=== PATIENT | female | born 1990 | race Caucasian/White ===

== ENCOUNTER 2016-05-04 06:49 | Day surgery (SDC) | payer OTHER ==
[~2016-05-04] VITALS: Ht 157.5 cm; Wt 90.0 kg
[2016-05-04 06:50] VITALS: BP 133/85; PULSE 82; RESP 16; TEMP 98.3; O2SAT 98
[2016-05-04] MEDS ORDERED: BIRTH CONTROL (07:07)
[2016-05-04] MEDS ORDERED: CLIN1CAP5 PO (07:09)
[2016-05-04] MEDS ORDERED: METH4PAK PO (07:09)
[2016-05-04] MEDS ORDERED: TRAM50TA PO (07:09)
--- NOTE | 2016-05-04 07:29 | PD ---
HPI Chief Complaint: ENT Complaint Time Seen by Provider: 07:10 Travel History International Travel<30 days: No Contact w/Intl Traveler<30days: No Traveled to known affect area: No History of Present Illness HPI 25-year-old female presents with difficulty swallowing and pain to her ear and jaw and throat since April 14. She states she originally went to [facility] and was [facility] to [facility] where she stayed there for 4 days getting steroids and antibiotics. She states in the hospital Dr. Shaffer saw her and she was sent home on steroids and antibiotics. She states when she stopped the steroids she started to feel worse so Dr. Josue had her start a steroid pack and she took the first dose that evening and the next dose the next morning and felt significantly better. She states with the steroid dose declining and she had 4 pills to take and was feeling worse she touch base with Dr. Josue who advised for her to come to our emergency department here. She states that she feels like she will not be able to swallow her pills. She denies having any fevers or other significant concurrent complaints. 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 Gynecologic Surgery: Yes Social History Alcohol Use: No Tobacco Use: No Substance Use: No Allergies-Medications (Allergen,Severity, Reaction): Coded Allergies: No Known Allergies (Unverified , 05/04/16) Reported Meds & Prescriptions Reported Meds & Active Scripts Active Reported Clindamycin (Clindamycin HCl) 150 Mg Cap 150 Mg PO Q6H Tramadol (Tramadol HCl) 50 Mg Tab 50 Mg PO Q4H PRN Methylprednisolone Dosepak (Methylprednisolone) 4 Dspk 4 Mg PO DIRECTED Per Pharmacist Direction [ Control] Review of Systems Except as stated in HPI: all other systems reviewed are Neg Physical Exam Narrative GENERAL: Well-nourished, well-developed patient. Overall well-appearing, Controlling secretions SKIN: Warm and dry. HEAD: Normocephalic and atraumatic. EYES: No injection or drainage. ENT: No nasal drainage noted. Patient has difficulty opening mouth fully and only partial exam with tongue depressor noted tonsillar hypertrophy with possible exudate which patient said caused significant pain NECK: Supple, trachea midline. No meningeal signs CARDIOVASCULAR: Regular rate and rhythm RESPIRATORY: Breath sounds equal bilaterally. No accessory muscle use. GASTROINTESTINAL: Abdomen soft, non-tender, nondistended. EXTREMITIES: No edema. NEUROLOGICAL: Awake and alert. Motor and sensory grossly within normal limits. Normal speech. Data Data Last Documented VS Vital Signs Date Time Temp Pulse Resp B/P Pulse Ox O2 Delivery O2 Flow Rate FiO2 05/04/16 07:49 96 05/04/16 06:50 98.3 82 16 133/85 Room Air Orders Complete Blood Count With Diff (05/04/16 07:22) Prothrombin Time / Inr (Pt) (05/04/16 07:22) Act Partial Throm Time (Ptt) (05/04/16 07:22) Blood Culture (05/04/16 07:22) Ecg Monitoring (05/04/16 07:22) Iv Access Insert/Monitor (05/04/16 07:22) Oximetry (05/04/16 07:22) Basic Metabolic Panel (Bmp) (05/04/16 07:22) Ct Soft Tiss Neck W Iv Cont (05/04/16 ) Dexamethasone Inj (Decadron Inj) (05/04/16 07:30) Ketorolac Inj (Toradol Inj) (05/04/16 07:30) Dexamethasone Inj (Decadron Inj) (05/04/16 08:00) Diet Npo (05/04/16 Breakfast) Ceftriaxone Inj (Rocephin Inj) (05/04/16 08:00) Sodium Chlor 0.9% 1000 Ml Inj (Ns 1000 M (05/04/16 08:00) Iohexol 350 Inj (Omnipaque 350 Inj) (05/04/16 08:50) Admit Order (Ed Use Only) (05/04/16 09:46) Labs Laboratory Tests Test 05/04/16 07:30 White Blood Count 25.6 TH/MM3 Red Blood Count 5.17 MIL/MM3 Hemoglobin 15.0 GM/DL Hematocrit 44.1 % Mean Corpuscular Volume 85.3 FL Mean Corpuscular Hemoglobin 28.9 PG Mean Corpuscular Hemoglobin 33.9 % Concent Red Cell Distribution Width 12.4 % Platelet Count 304 TH/MM3 Mean Platelet Volume 8.2 FL Neutrophils (%) (Auto) 69.4 % Lymphocytes (%) (Auto) 22.7 % Monocytes (%) (Auto) 6.9 % Eosinophils (%) (Auto) 0.4 % Basophils (%) (Auto) 0.6 % Neutrophils # (Auto) 17.8 TH/MM3 Lymphocytes # (Auto) 5.8 TH/MM3 Monocytes # (Auto) 1.8 TH/MM3 Eosinophils # (Auto) 0.1 TH/MM3 Basophils # (Auto) 0.2 TH/MM3 CBC Comment AUTO DIFF Differential Total Cells 100 Counted Neutrophils % (Manual) 63 % Band Neutrophils % 1 % Lymphocytes % 31 % Monocytes % 5 % Neutrophils # (Manual) 16.4 TH/MM3 Differential Comment FINAL DIFF MANUAL Platelet Estimate NORMAL Platelet Morphology Comment NORMAL Red Cell Morphology Comment NORMAL Prothrombin Time 10.0 SEC Prothromb Time International 0.9 RATIO Ratio Activated Partial 27.9 SEC Thromboplast Time Sodium Level 138 MEQ/L Potassium Level 4.0 MEQ/L Chloride Level 101 MEQ/L Carbon Dioxide Level 26.7 MEQ/L Anion Gap 10 MEQ/L Blood Urea Nitrogen 19 MG/DL Creatinine 0.93 MG/DL Estimat Glomerular Filtration 73 ML/MIN Rate Random Glucose 79 MG/DL Calcium Level 9.3 MG/DL [facility] [place] Medical Decision Making Medical Screen Exam Complete: Yes Emergency Medical Condition: Yes Medical Record Reviewed: Yes (past history confirmed) Interpretation(s) CBC & BMP Diagram 05/04/16 07:30 Last [address] 05/04/16 0000 Signed Impressions: Service Date/Time: Wednesday, May 04, 2016 08:31 - CONCLUSION: Markedly enlarged right tonsil that crosses the midline and mildly narrows the airway. There is mild low density centrally within this enlarged tonsillar tissue but no well-defined fluid collection/abscess is seen. Rony Guerra MD Differential Diagnosis Peritonsillar abscess, uvulitis, tonsillitis, retropharyngeal abscess... Narrative Course Will check blood work, CT scan and dose with Toradol and Decadron and discuss with her ENT ed workup with persistent peritonsillar swelling on right, Dr. josue will come see patient and patient updated and she states she's feeling a little better with the IV steroids dr josue will take to the OR Physician Communication Physician Communication dr josue states to check ct and give 8mg additionally of decadron and place on rocephin dr josue updated about ct and will see patient dr josue states he will take to OR and likely discharge from there Diagnosis Primary Impression: Peritonsillar abscess Bernarda Salazar MD May 04, 2016 07:29
[2016-05-04] MEDS ORDERED: KETOROLAC TROMETHAMINE 30 MG/ML (IVP) VIAL IV PUSH ONE (07:30)
[2016-05-04] MEDS ORDERED: DEXAMETHASONE SOD PHOS 4 MG/ML VIAL IV PUSH ONE ×2 (07:30→08:00)
[2016-05-04 07:43] LABS: AUTOMATED NEUTROPHIL # 17.8 TH/MM3 (1.8-7.7); BASOPHIL # 0.2 TH/MM3 (0-0.2); BASOPHIL % 0.6 % (0.0-2.0); EOSINOPHIL # 0.1 TH/MM3 (0-0.4); EOSINOPHIL % 0.4 % (0.0-4.0); HEMATOCRIT 44.1 % (35.0-46.0); LYMPH % 22.7 % (9.0-44.0); LYMPHOCYTE # 5.8 TH/MM3 (1.0-4.8); MEAN CELL VOLUME 85.3 FL (80.0-100.0); MEAN CORPUSCULAR HEMOGLOBIN 28.9 PG (27.0-34.0); MEAN CORPUSCULAR HGB CONC 33.9 % (32.0-36.0); MONO % 6.9 % (0.0-8.0); NEUT % 69.4 % (16.0-70.0); PLATELET COUNT 304 TH/MM3 (150-450); RED BLOOD COUNT 5.17 MIL/MM3 (4.00-5.30); RED CELL DISTRIBUTION WIDTH 12.4 % (11.6-17.2); WHITE BLOOD COUNT 25.6 TH/MM3 (4.0-11.0)
[2016-05-04 07:44] LABS: HEMO FLAGS AUTO DIFF
[2016-05-04 07:49] VITALS: O2SAT 96
[2016-05-04 07:53] LABS: APTT (PATIENT) 27.9 SEC (24.3-30.1); INTERNATIONAL NORMALIZED RATIO 0.9 RATIO
[2016-05-04] MEDS ORDERED: cefTRIAXone INJ 1,000 MG in SODIUM CHLORIDE 0.9% INJ 100 ML IV ONE (08:00)
[2016-05-04] MEDS ORDERED: SODIUM CHLOR 0.9% 1000 ML INJ 1,000 ML IV ONE (08:00)
[2016-05-04 08:09] LABS: BICARBONATE 26.7 MEQ/L (21.0-32.0)
[2016-05-04 08:23] LABS: BANDS 1 % (0-6); NEUTROPHIL # MANUAL DIFF 16.4 TH/MM3 (1.8-7.7); POLYS (SEG NEUTROPHILS) 63 % (16-70); WBC DIFF SAMPLE 100
[2016-05-04 08:24] LABS: PLATELET ESTIMATE SMEAR NORMAL (NORMAL); PLATELET MORPHOLOGY NORMAL (NORMAL); SCAN/DIFF FINAL DIFF MANUAL
[2016-05-04] MEDS ORDERED: IOHEXOL 350 MG/ML 10 ML VIAL (for RAD DIAG) IV ONE (08:50)
--- NOTE | 2016-05-04 09:00 | RADRPT ---
EXAM DATE/TIME: 05/04/2016 08:31 [facility] COMPARISON: No previous studies available for comparison. INDICATIONS : Right sided swelling in neck and difficulty swallowing for two weeks. IV CONTRAST: 70 cc Omnipaque 350 (iohexol) IV RADIATION DOSE: 15.56 CTDIvol (mGy) MEDICAL HISTORY : Patient states that she has three kidneys. SURGICAL HISTORY : None. ENCOUNTER: Initial ACUITY: 2 weeks PAIN SCALE: 7/10 LOCATION: Right neck TECHNIQUE: Volumetric scanning of the neck was performed. Using automated exposure control and adjustment of th e mA and/or kV according to patient size, radiation dose was kept as low as reasonably achievable to obtain optimal diagnostic quality images. FINDINGS: NASOPHARYNX: The nasopharyngeal airway has a normal configuration. No mucosal thickening or mass is seen. OROPHARYNX: The intrinsic muscles of the tongue are symmetric. There is marked enlargement of the right tonsillar pillar with central low density. No rim enhancement or definite abscess is present. It crosses the m idline and abuts the contralateral tonsil and mildly narrows the airway. LARYNX: The supraglottic, glottic, and infraglottic structures demonstrate no acute finding. SALIVARY GLANDS: The parotid and submandibular glands demonstrate no abnormality. LYMPH NODES: No enlarged or necrotic-appearing nodes. Symmetric small lymph nodes are present bilaterally. THYROID: Homogeneous enhancement without evidence of nodule. BONES: Within normal limits. CONCLUSION: Markedly enlarged right tonsil that crosses the midline and mildly narrows the airway. There is mild low density centrally within this enlarged tonsillar tissue but no well-defined fluid collection/absc ess is seen. Rony Guerra MD on May 04, 2016 at 8:54 Board Certified Radiologist. This report was verified electronically.
--- NOTE | 2016-05-04 10:17 | PD.CONS ---
History of Present Illness Service ENT Consult Requested By ED Reason for Consult Right peritonsillar abscess. Primary Care Physician Non-Staff Diagnoses: History of Present Illness 25 year old female had pharyngitis. Went to [facility] ED and transferred to [facility] with a right Peritonsillar abscess. Was treated with iv steroids and antibiotics but did not resolve completely. Called this morning from home on a steroid taper and clindamycin and was not any better. Was advised to come to ED. Has received steroid bolus and IV Rocephin here. CT and clinical exam show right [employer]. Trismus ids beetr. Discussed I and D. Feels se cannot do local procedure. To OR for I and D under general anesthesia. Review of Systems Ears, nose, mouth, throat: COMPLAINS OF: Throat pain, Odynophagia, DENIES: Nasal discharge, Oral lesions, Hoarseness Past Family Social History Allergies: Coded Allergies: No Known Allergies (Unverified , 05/04/16) Past Surgical History No previous tonsillar abscess. Physical Exam Vital Signs Vital Signs Date Time Temp Pulse Resp B/P Pulse Ox O2 Delivery O2 Flow Rate FiO2 05/04/16 07:49 96 05/04/16 06:50 98.3 82 16 133/85 98 Room Air Physical Exam GENERAL: This is a well-nourished, well-developed patient, in no apparent distress. SKIN: No rashes, ecchymoses or lesions. Cool and dry. HEAD: Atraumatic. Normocephalic. No temporal or scalp tenderness. EYES: Pupils equal round and reactive. Extraocular motions intact. No scleral icterus. No injection or drainage. ENT: Nose without bleeding, purulent drainage or septal hematoma. Right tonsillar swelling and erythema. Uvular shift to left. . Airway patent. NECK: Trachea midline. No JVD or lymphadenopathy. Supple, nontender, no meningeal signs. CARDIOVASCULAR: Regular rate and rhythm. RESPIRATORY: Clear to auscultation. Breath sounds equal bilaterally. GASTROINTESTINAL: Abdomen soft, non-tender, nondistended. MUSCULOSKELETAL: Extremities without clubbing, cyanosis, or edema. No joint tenderness, effusion, or edema noted. No calf tenderness. NEUROLOGICAL: Awake and alert. Cranial nerves II through XII intact. Motor and sensory grossly within normal limits. Five out of 5 muscle strength in all muscle groups. Normal speech. Laboratory Laboratory Tests Test 05/04/16 07:30 White Blood Count 25.6 Red Blood Count 5.17 Hemoglobin 15.0 Hematocrit 44.1 Mean Corpuscular Volume 85.3 Mean Corpuscular Hemoglobin 28.9 Mean Corpuscular Hemoglobin 33.9 Concent Red Cell Distribution Width 12.4 Platelet Count 304 Mean Platelet Volume 8.2 Neutrophils (%) (Auto) 69.4 Lymphocytes (%) (Auto) 22.7 Monocytes (%) (Auto) 6.9 Eosinophils (%) (Auto) 0.4 Basophils (%) (Auto) 0.6 Neutrophils # (Auto) 17.8 Lymphocytes # (Auto) 5.8 Monocytes # (Auto) 1.8 Eosinophils # (Auto) 0.1 Basophils # (Auto) 0.2 CBC Comment AUTO DIFF Differential Total Cells 100 Counted Neutrophils % (Manual) 63 Band Neutrophils % 1 Lymphocytes % 31 Monocytes % 5 Neutrophils # (Manual) 16.4 Differential Comment FINAL DIFF MANUAL Platelet Estimate NORMAL Platelet Morphology Comment NORMAL Red Cell Morphology Comment NORMAL Prothrombin Time 10.0 Prothromb Time International 0.9 Ratio Activated Partial 27.9 Thromboplast Time Sodium Level 138 Potassium Level 4.0 Chloride Level 101 Carbon Dioxide Level 26.7 Anion Gap 10 Blood Urea Nitrogen 19 Creatinine 0.93 Estimat Glomerular Filtration 73 Rate Random Glucose 79 Calcium Level 9.3 Date/Time Procedure Status Source Growth 05/04/16 07:30 Aerobic Blood Culture Received Blood Peripheral Pending 05/04/16 07:30 Anaerobic Blood Culture Received Blood Peripheral Pending Result Diagram: 05/04/16 0730 05/04/[address] reviewed, right tonsillar swelling. Assessment and Plan Assessment and Plan Right peritonsillar abscess, has failed medical management. Due to pain, cannot tolerate local drainage. To OR for I and D under general anesthesia. Risks and benefits reviewed with the patient. Risks include, but not limited to, those of general anesthesia, bleeding, velopharyngeal insufficiency, hematoma, recurrent abscess and persistent infection. Patient stets she understands and accepts the procedure. Olvin Galvan MD May 04, 2016 10:17
[2016-05-04] MEDS ORDERED: DEXTROSE 5%-LACTATED RING INJ 1,000 ML IV SCH (10:30)
[2016-05-04] MEDS ORDERED: MORPHINE SULFATE 4 MG/ML INJ IV PRN (10:30)
[2016-05-04] MEDS ORDERED: LIDOCAINE 1%/EPINEPHrine 1:100,000 SOLN 30 ML VIAL ONE (10:40)
[2016-05-04] MEDS ORDERED: ACETAMINOPHEN 1000 MG/100 ML VIAL IV ONE (11:02)
[2016-05-04] MEDS ORDERED: DO NOT ADM ANY ANTICOAGULANT DRUGS XX PRN (11:15)
[2016-05-04] MEDS ORDERED: MIDAZOLAM HCL 2 MG/2 ML VIAL ONE (11:18)
[2016-05-04] MEDS ORDERED: fentaNYL CITRATE 250 MCG/5 ML AMP ONE (11:19)
[2016-05-04] MEDS ORDERED: HYDR1ELX PO (11:26)
[2016-05-04 11:45] VITALS: BP 146/95; PULSE 82; RESP 14; TEMP 98.1; O2SAT 95
[2016-05-04] MEDS ORDERED: ONDANSETRON HCL 4 MG/2 ML VIAL IV PUSH ONE (12:00)
[2016-05-04] MEDS ORDERED: PROPOFOL 200 MG/20 ML AMP IV ONE (12:00)
[2016-05-04] MEDS ORDERED: LACTATED RINGER'S 1000 ML INJ 1,000 ML IV ONE (12:00)
--- NOTE | 2016-05-04 12:08 | MP ---
cc: LATONYA CHAVEZ M.D. DATE OF SURGERY: 05/04/2016 INDICATIONS: The patient is a 25 year-old female who had tonsillitis. She had a right peritonsillar abscess. She did not respond to medical therapy. She is brought to the operating room for incision and drainage, right peritonsillar abscess. PREOPERATIVE DIAGNOSIS: Right peritonsillar abscess. POSTOPERATIVE DIAGNOSIS: Right peritonsillar abscess. OPERATION: Incision and drainage, right peritonsillar abscess. SUMMARY: The patient is brought to the operating room placed in supine position, successfully placed under general anesthesia and prepared in the usual fashion for the procedure. The oral cavity was exposed. There was evidence of swelling of the right tonsil. There was evidence of spontaneous drainage at the superior area. This was gently palpated and the tonsil abscess could be felt just below. Using a tonsil clamp, the area was entered and was spread. The abscess cavity was identified. Culture was taken and then it was completely drained, using suction with a Yankauer. The abscess cavity was explored. There were no loculations. I could feel it with my gentle palpation with the finger. I used an 18 gauge needle and aspirated the area just below. There was no evidence of any further loculation of the area. With I&D complete, the patient was suctioned. The stomach was suctioned. She was awake and extubated, taken to the Recovery Room in stable condition. MD JENNIFER Johnson/LILIBETH /11:11 AM /11:59 AM
== END 2016-05-04 12:05 | disposition home or self-care (01) ==
LOC: NEPC 06:49 → HROP 09:56
PROVIDERS: ATTEND Specialist
DX: J36 Peritonsillar abscess (principal)
CPT/HCPCS: 00170; 42700; 70491; 80048; 85007; 85027; 85610; 85730; 87015; 87040; 87070; 87102; 87116; 87205; 87206; 96365; 96375; 96376; 99285; J0131; J0696; J1100; J1885; J2250; J2405; J3010; J7030; J7120; Q9967

== ENCOUNTER 2017-01-24 08:39 | Emergency (ER) | payer OTHER ==
[~2017-01-24] VITALS: Ht 157.5 cm; Wt 90.0 kg
[~2017-01-24 08:39] MED LIST: BIRTH CONTROL; CLIN1CAP5 PO; HYDR1ELX PO; METH4PAK PO; TRAM50TA PO
[2017-01-24 08:41] VITALS: BP 123/82; PULSE 71; RESP 12; TEMP 98.4; O2SAT 100
[2017-01-24] MEDS ORDERED: AUGM875T3 PO (08:58)
[2017-01-24] MEDS ORDERED: IBUP800T23 PO (08:58)
[2017-01-24] MEDS ORDERED: ACETAMINOPHEN/HYDROcodone 325 MG/5 MG TAB PO ONE (09:00)
[2017-01-24] MEDS ORDERED: TETANUS/DIPHTHERIA TOXOID ADULT 0.5 ML VIAL IM ONE (09:00)
[2017-01-24] MEDS ORDERED: LIDOCAINE HCL 1% 50 ML VIAL INFIL ONE (09:00)
--- NOTE | 2017-01-24 09:00 | PD ---
HPI Chief Complaint: Bite or Sting Time Seen by Provider: 08:55 Travel History International Travel<30 days: No Contact w/Intl Traveler<30days: No Traveled to known affect area: No History of Present Illness HPI 26-year-old female presents to the emergency Department with complaint of a dog bite wound to her left thigh that occurred today by her own dog. Her dog in her mother's dogs were in a fight and she tried to break In her dog accidentally bit her. She says her dog is up-to-date on vaccinations and she does not want to initiate rabies protocol. She has applied pressure and a dressing to control bleeding. She has not taken any medications to alleviate her symptoms. Her tetanus was last updated 9 years ago and she is requesting for to be updated at this time. Denies paresthesias, loss of sensation, decreased range of motion, decreased strength to the affected extremity. Denies fever, vomiting. Symptoms are moderate in severity. No known allergies. Has no other medical complaints. No other modifying factors or associated signs and symptoms. PFSH Past Medical History ?: Not LMP: 12/24/16 Past Surgical History Gynecologic Surgery: Yes Social History Alcohol Use: No Tobacco Use: No Substance Use: No Allergies-Medications (Allergen,Severity, Reaction): Coded Allergies: No Known Allergies (Unverified , 05/04/16) Reported Meds & Prescriptions Reported Meds & Active Scripts Active Lortab (Hydrocodone-Acetaminophen) 5-325 Mg Tab 1 Tab PO Q4H PRN Ibuprofen 800 Mg Tab 800 Mg PO Q6HR PRN Augmentin (Amoxicillin-Clavulanate) 875-125 Mg Tab 1 Tab PO BID 10 Days Reported Lortab Liq (Hydrocodone-Acetaminophen Liq) 10-300 Mg/15 Ml Elix 15 Ml PO Q4HR PRN Clindamycin (Clindamycin HCl) 150 Mg Cap 150 Mg PO Q6H Tramadol (Tramadol HCl) 50 Mg Tab 50 Mg PO Q4H PRN Methylprednisolone Dosepak (Methylprednisolone) 4 Dspk 4 Mg PO DIRECTED Per Pharmacist Direction [ Control] Review of Systems Except as stated in HPI: all other systems reviewed are Neg Physical Exam Narrative GENERAL: Well-nourished, well-developed female patient, in no acute distress SKIN: Warm and dry. Left upper inner thigh with approximately 3 cm laceration; surrounded by ecchymosis and a few superficial scratches; bleeding controlled. Left lower extremity supple and nontender with 2+ pedal pulses and sensory intact without erythema or edema. HEAD: Atraumatic. Normocephalic. EYES: Pupils equal and round. No scleral icterus. No injection or drainage. ENT: Mucosa pink and moist. Airway patent. NECK: Trachea midline. CARDIOVASCULAR: Regular rate. RESPIRATORY: No accessory muscle use. GASTROINTESTINAL: Obese. MUSCULOSKELETAL: No obvious deformities. No clubbing. No cyanosis. No edema. NEUROLOGICAL: Awake and alert. Oriented 3. No obvious cranial nerve deficits. Motor grossly within normal limits. Normal speech. PSYCHIATRIC: Appropriate mood and affect; insight and judgment normal. Data Data Last Documented VS Vital Signs Date Time Temp Pulse Resp B/P (MAP) Pulse Ox O2 Delivery O2 Flow Rate FiO2 01/24/17 09:57 01/24/17 08:41 98.4 71 12 100 Orders Orders Tetanus/Diphtheria Tox Adult (Tetanus/Di (01/24/17 09:00) Lidocaine 1% Inj (50 Ml) (Xylocaine 1% I (01/24/17 09:00) Ed Discharge Order (01/24/17 08:54) Acetamin-Hydrocod 325-5 Mg ([place] 5-325 (01/24/17 09:00) MDM Medical Decision Making Medical Screen Exam Complete: Yes Emergency Medical Condition: Yes Medical Record Reviewed: Yes Differential Diagnosis Dog bite wound, laceration, abrasion Narrative Course 26-year-old female with dog bite wound from her own dog to the left upper inner thigh. Bite was accidental. Patient does not want initiate rabies protocol. Tetanus updated in the ER. Lortab administered in the ER. See my procedure note for laceration repair. Lortab, ibuprofen, Augmentin prescribed for home. Instructed patient to follow up with primary care provider. Patient verbalizes understanding and agreement with treatment plan. Patient is medically cleared and stable for discharge. Discussed reasons to return to the emergency department. Patient agrees with treatment plan. The patients vital signs are stable and the patient is stable for outpatient follow-up and treatment. Patient discharged home, stable and in no acute distress. Procedures Procedure Narrative LACERATION LOCATION: Left upper medial thigh LENGTH: 3 cm NUMBER OF STITCHES/GHAZALA: 5 wide ghazala REPAIR: The area of the laceration was prepped with Betadine and sterilely draped. The laceration was infiltrated with 1% lidocaine. The wound was copiously irrigated and explored without evidence of foreign body, tendon injury or neurovascular injury. The wound was closed using ghazala. This was a single layer repair. A sterile dressing was applied. The patient was advised to keep the dressing clean and dry. Patient tolerated the procedure well. Diagnosis Primary Impression: Dog bite of left thigh Qualified Codes: S71.152A - Open bite, left thigh, initial encounter; W54.0XXA - Bitten by dog, initial encounter Referrals: Primary Care Physician Patient Instructions: Animal Bite (ED), General Instructions, Laceration (ED), Staple Care (ED) Departure Forms: Tests/Procedures, Work Release Enter return to work date: Jan 27, 2017 Additional Instructions: Keep area clean and dry Ibuprofen or Tylenol as directed and as needed for pain and inflammation Ice pack to area as needed to decrease pain Return to the emergency department or follow-up with primary care provider in 14 days for staple removal Follow up with primary care provider within 2-4 days Return to the emergency department immediately with worsening of symptoms, particularly if reddened streaks up or down the affected extremity from the suture site, fever, numbness/tingling in the affected extremity, loss of sensation in the affected extremity, severe swelling of the affected Med/Other Pt SpecificInfo: Prescription(s) given Scripts Hydrocodone-Acetaminophen (Lortab) 5-325 Mg Tab 1 TAB PO Q4H Y for PAIN, #10 TAB 0 Refills Prov: Gloria Msua 01/24/17 Ibuprofen (Ibuprofen) 800 Mg Tab 800 MG PO Q6HR Y for PAIN, #40 TAB 0 Refills Prov: Gloria Musa 01/24/17 Amoxicillin-Clavulanate (Augmentin) 875-125 Mg Tab 1 TAB PO BID for Infection for 10 Days, #20 TAB 0 Refills Prov: Gloria Musa 01/24/17 Disposition: 01 DISCHARGE HOME Condition: Stable Gloria Musa Jan 24, 2017 09:00
[2017-01-24] MEDS ORDERED: HYDR-3533 PO (09:02)
== END 2017-01-24 09:59 | disposition home or self-care (01) ==
LOC: NEPK 08:39
DX: S71.152A Open bite, left thigh, initial encounter (principal); W54.0XXA Bitten by dog, initial encounter; Z23 Encounter for immunization
CPT/HCPCS: 12002; 90471; 90714